=== PATIENT | male | born 1990 | race Caucasian/White ===

== ENCOUNTER → 2024-05-06 | Day surgery (SDC) | payer OTHER | LOC: CSHRAD 09:15 | PROVIDERS: ATTEND Emergency Medicine Sports Medicine | PROC: BP08YZZ Plain Radiography of Right Shoulder using Other Contrast (ICD-10-PCS; principal; 2024-05-06) | DX: M25.511 Pain in right shoulder (principal) | CPT/HCPCS: 23350; 77002; A9577; A9579; J0171; J7050; Q9967 ==